=== PATIENT | female | born 1985 | race Two or more races ===

== ENCOUNTER 2024-04-09 22:06 | Emergency (ER) | payer BC ==
[2024-04-09] MEDS: Diphtheria,Pertussis(Acell),Tetanus Vaccine 0.5 ML Syringe IM ONE (23:24)
[2024-04-09] MEDS: Ketorolac 30 MG/ML SDV IM ONE (23:25)
== END 2024-04-10 00:22 | disposition home or self-care (01) ==
LOC: JP.ED 22:06
DX: S91.332A Puncture wound without foreign body, left foot, initial encounter (principal); Z23 Encounter for immunization; X58.XXXA Exposure to other specified factors, initial encounter
CPT/HCPCS: 73630-26-LT; 73630-LT; 90471; 90715; 96372; 99283; 99283-25; J1885